=== PATIENT | female | born 1970 | race African-American/Black ===

== ENCOUNTER 2023-07-14 00:17 | Day surgery (SDC) | payer BC, SELFPAY ==
--- NOTE | 2023-07-02 13:49 | PC.NURSE ---
Report to the Outpatient Waiting Room, entrance under the green pavilion located off [facility], at time 1230 on date 07/14/22. Planned Procedure Time: 1430. Time changes happen often and if your time is changed the preop area will call you the afternoon before. - You and your visitor will be asked to self-screen and do not enter if you have any COVID symptoms. - A mask is optional within the hospital at this time. Patients may have clear liquids (water, carbonated beverages, clear teas, apple juice) until 3 hours prior to surgery with a maximum of 20 ounces. 1130 - No food from midnight until time of surgery - Infants may have breast milk until 4 hours before surgery, formula 6 hours prior to surgery. - Children will be allowed to drink immediately following surgery. If applicable, please bring a bottle or sippy cup to assist with drinking. Juice, water, soda, and popsicles are readily available. For infants on formula, please bring formula the day of surgery. Pacifiers are allowed. Take the following medications with a SIP of water the morning of surgery: None DO NOT STOP ANY OF YOUR OTHER PRESCRIPTION MEDICATIONS PRIOR TO SURGERY ?EXCEPT THE FOLLOWING Medications to discontinue per physician Multivitamin Date to take last dose 07/11/22 Please no make-up, nail croatian, hairspray, perfume, deodorant, or body powder the day of surgery. No jewelry (including any body piercings) or valuables the day of surgery, leave them at home. Please take a shower or bath the night before, or the morning of, surgery with an antibacterial soap. Wear comfortable, loose fitting clothing. Children are encouraged to wear pajamas. - Jewelry must be removed prior to entering the operating room. Rings and piercings that are not removed may be cut off. - The hospital will not accept responsibility for valuables. - Please leave all valuables, including medications, at home the day of surgery. If you are going home after surgery, a licensed regional otr company driver must drive you home. - NO public transportation without another adult if you receive anesthesia. - We recommend that an adult stay with you for 24 hours following discharge. - We also recommend that you do not drive, make important decision, drink alcoholic beverages, or take any drugs that were not prescribed by your health care provider for at least 24 hours after your discharge time. For Pediatric surgeries, we recommend two adults accompany the child home. Follow any additional instructions given to you from your surgeon. If you or anyone in your household have experienced Covid symptoms in the past week, please notify your surgeon or the nurse liaison at the phone number below for possible testing. Telephone instructions given to Patient- Andres Adame asked if any additional questions and then verbalized understanding. Patient advised to call surgeon office or pre surgery nurse liaison [phone] if any additional questions.
[2023-07-02 13:55] VITALS: BMI 41.7
--- NOTE | 2023-07-14 08:41 | P.HP_ITS ---
History of Present Illness History of Present Illness Consent: Risks, benefits, and alternatives have been discussed and questions answered. Patient agrees to proceed with procedure. Chief complaint: post menopausal bleeding Narrative: Andres Potts is a 53 year old female with 3 episodes of postmenopausal bleeding. Pelvic ultrasound was unable to measure endometrial stripe. LH and FSH are consistent with possible menopause. Patient has had an IUD in place without bleeding prior to this point. It is recommended to undergo D&C hysteroscopy for further evaluation. Risks of infection, bleeding, perforation, and displacement of the IUD are reviewed. Review of Systems Review of Systems: not repeated day of surgery; patient states no changes in status [facility] Past Medical History Medical History (Updated 07/14/23 @ 08:46 by Patience Dong MD) Arthritis Chronic hypertension (normal spontaneous vaginal delivery) Social History Social History Smoking status: Never smoker Meds Home Medications and Allergies Home Medications Medication Instructions Recorded Confirmed Type Adults Multivitamin 1 tab-cap PO DAILY 07/02/23 07/02/23 History Allergies Allergy/AdvReac Type Severity Reaction Status Date / Time No Known Allergies Allergy Verified 07/02/23 13:41 Exam Const: General: healthy appearing and alert Orientation/consciousness: patient oriented x3 Resp: Effort & Inspection: normal respiratory effort GI: GI Palp: Yes Soft to palpation, No Tenderness to palpation present (GI) and No Palpable mass present : External Female Exam: normal external appearance Speculum Exam - Vagina: normal appearance of the vagina and normal vaginal discharge Speculum Exam - Cervix: normal appearance of the cervix Bimanual exam- vagina & uterus: uterine size normal and consistency normal Bimanual Exam- Adnexa, other: normal adnexae and No adnexal tenderness Neuro: General: patient oriented x3 Assessment and Plan Assessment and plan (1) Post-menopausal bleeding: Code(s): N95.0 - Postmenopausal bleeding Status: Acute Assessment and Plan: plan to proceed with D&C hysteroscopy plan to leave IUD in place unless it becomes dislodged
--- NOTE | 2023-07-14 08:41 | WPDHPUPDATE1 ---
History and Physical Update Update Date/Time: 07/14/23 08:41 History and Physical has been reviewed, including an updated exam of the patient. There are NO changes in the patient's condition. Risks, benefits, and alternatives have been discussed and questions answered. Patient agrees to proceed with procedure.
[2023-07-14 12:50] VITALS: BP 136/81; PULSE 77; RESP 20; TEMP 36.4; O2SAT 99
[2023-07-14] MEDS: ACETAMINOPHEN 500 MG TABLET 1000 MG PO (13:00)
--- NOTE | 2023-07-14 13:04 | WPDANESEPPF ---
Anes - Initial Pre Proc Eval Procedure: Operation Date: 07/14/23 14:30 Proposed Procedures p Hysteroscopy Dilation and Curettage - Patience Dong MD Date/Time: 07/14/23 13:04 Surgeon: Patience Dong MD Pre Op Diagnosis: post menopausal bleeding Patient Data Age: 53 Gender: F Height: 1.65 m Weight: 113.8 kg Allergies Allergy/AdvReac Type Severity Reaction Status Date / Time No Known Allergies Allergy Verified 07/14/23 13:00 Home Medications Medication Instructions Recorded Confirmed Type Adults Multivitamin 1 tab-cap PO DAILY 07/02/23 07/14/23 History Patient hx anesthesia problems: none Family hx anesthesia problems: none Results Review: All pre-operative results and documents have been reviewed as part of the pre-operative evaluation. [facility] Past Medical History Medical History Arthritis Chronic hypertension (normal spontaneous vaginal delivery) Social History Social History Smoking status: Never smoker Anes - Eval Final PreProcedure Day of Procedure 07/14/23 13:04 Patient weight: morbidly obese Heart: regular rate and rhythm Lungs: clear to auscultation Airway: Mallampati scale class II Neurological: alert and oriented Last oral intake: >/= 8 hours ASA classification: III Emergent: no Anesthetic plan: proceed Anesthesia type and monitoring: general GIVS and standard monitoring Results Review: All pre-operative results and documents have been reviewed as part of the pre-operative evaluation. Informed Consent: The patient's anesthetic plan and its attendant risks and benefits were discussed with the patient/family/POA. Questions were solicited and answers provided to the satisfaction of the patient/family/POA.
[2023-07-14] MEDS: LACTATED RINGERS 1,000 ML 30 ML IV CONT (13:05)
[2023-07-14 14:27] VITALS: BP 122/76; PULSE 72; RESP 14; O2SAT 94
--- NOTE | 2023-07-14 14:28 | P.OP_ITS ---
Procedure Note - Detailed Date of Procedure 07/14/23 Pre-op Diagnosis post menopausal bleeding Post-op Diagnosis Same Procedure Performed D&C hysteroscopy Surgeon Patience Dong MD Anesthesia MAC Findings IUD in correct position; normal appearing thin endometrium; uterus sounds to 7cm Description of Procedure The patient is taken to the operating room and placed under anesthesia in the dorsal lithotomy position. She was prepped and draped in the usual sterile fashion. [place] speculum was placed in the vagina and the cervix grasped on the anterior lip with a tenaculum. The uterus is sounded to 7cm. The hysteroscope is placed with the above-stated findings. The OO sharp curette is used to curette the endometrium until a good uterine cry was noted in all areas. The instruments are removed. Sponge, needle, and instrument counts are joaquin ect per the OR staff. Patient is awakened from anesthesia and taken to recovery in stable condition. Estimated Blood Loss 5 Drains No Packing No Pathology Yes ( Endometrial curettings) Complications No immediate complications Condition Stable Disposition PACU
[2023-07-14] MEDS: fentaNYL CITRATE INJ (*CRX) 100 MCG/2 ML VIAL 25 MCG IV PUSH (14:53)
[2023-07-14 14:55] VITALS: BP 131/82; PULSE 66; RESP 14; O2SAT 95
[2023-07-14 15:25] VITALS: BP 139/84; PULSE 66; RESP 14; O2SAT 95
== END 2023-07-14 15:47 | disposition home or self-care (01) ==
PROVIDERS: Visit Provider Obstetrics & Gynecology Gynecology
PROC: 0U5B8ZZ Destruction of Endometrium, Via Natural or Artificial Opening Endoscopic (ICD-10-PCS; CPT 58563; principal; 2023-07-14 14:30)
DX: N95.0 Postmenopausal bleeding (principal); N71.1 Chronic inflammatory disease of uterus; I10 Essential (primary) hypertension; E66.01 Morbid (severe) obesity due to excess calories; Z68.41 Body mass index [BMI] 40.0-44.9, adult; Z97.5 Presence of (intrauterine) contraceptive device
CPT/HCPCS: 58558; 88305; A9270; J2250; J2405; J2704; J3010; J7120

== ENCOUNTER 2024-11-08 00:29 | Day surgery (SDC) | payer BC, SELFPAY ==
[2024-10-28 13:20] VITALS: BMI 45.0
--- NOTE | 2024-10-28 13:29 | PC.NURSE ---
Report to the Outpatient Waiting Room, entrance under the green pavilion located off [facility], at time ____0600___ on date ___11/08/24____. Planned Procedure Time: ___729 .? Time changes happen often and if your time is changed the preop area will call you the afternoon before. - You and your visitor will be asked to self-screen and do not enter if you have any COVID symptoms. Please call surgeon if you need to reschedule. - A mask is optional within the hospital at this time. Patients may have clear liquids (water, carbonated beverages, clear teas, apple juice) until 3 hours prior to surgery with a maximum of 20 ounces. - No food from midnight until time of surgery and no smoking, or chewing tobacco (or any form of nicotine). No chewing gum, candy or mints. Take only the following medications with a SIP of water on the morning of surgery: none DO NOT STOP ANY OF YOUR OTHER PRESCRIPTION MEDICATIONS PRIOR TO SURGERY EXCEPT THE FOLLOWING Hold all vitamins and supplements for 3 days per anesthesiologist. Please no make-up, nail lao, hairspray, perfume, deodorant, or body powder the day of surgery.? No jewelry (including any body piercings) or valuables the day of surgery, leave them at home.? Please take a shower or bath the night before, or the morning of, surgery with an antibacterial soap.? Wear comfortable, loose fitting clothing.? - Jewelry must be removed prior to entering the operating room.? Rings and piercings that are not removed may be cut off. - The hospital will not accept responsibility for valuables.? - Please leave all valuables, including medications, at home the day of surgery. If you are going home after surgery, a licensed driver salesman must drive you home.? - NO public transportation without another adult if you receive anesthesia. - We recommend that an adult stay with you for 24 hours following discharge. - We also recommend that you do not drive, make important decision, drink alcoholic beverages, or take any drugs that were not prescribed by your health care provider for at least 24 hours after your discharge time. Follow any additional instructions given to you from your surgeon. Telephone instructions given to ___Destineeene__and asked if any additional questions and then verbalized understanding. Patient advised to call surgeon office or pre surgery nurse liaison [phone] if any additional questions.
--- OUTSIDE RECORDS SUMMARY | 2024-11-08 00:32 | XMS_ITS | Referral Summary ---
Author Organization [facility] [place] [facility] Address [address] [place] [address] Care Team Providers Care Painter Maintenance Name Role Phone Kd Huizar MD Primary Care Provider Encounters Date Type Department Care Team Description 08/23/2024 9:34 AM TRAINING REPRESENTATIVE - 08/23/2024 11:59 PM TRAINING REPRESENTATIVE Hospital Encounter [facility] [address] [place] [id number] Bilateral chronic knee pain Discharge Disposition: Discharge to home or self care 08/23/2024 9:30 AM TRAINING REPRESENTATIVE Office Visit [facility] [address] [place] [address] [place] [phone] Dante Solomon DO Bilateral chronic knee pain (Primary Dx) from Last 3 Months Allergies No known active allergies Medications naproxen (NAPROSYN) 500 mg tabletIndication s:Left hip pain Take 1 tablet (500 mg total) by mouth 2 (two) times a day with meals for 5 days 10 tablet 03/28/2024 Active cyclobenzaprine (FLEXERIL) 5 mg tabletIndication s:Left hip pain Take 1 tablet (5 mg total) by mouth 3 (three) times a day as needed for muscle spasms for up to 7 days 21 tablet 03/28/2024 Active Active Problems Problem Noted Date Diagnosed Date Elbow joint pain 08/23/2024 Overview (08/23/2024): Elbow joint pain Multiple joint pain 08/23/2024 Overview (08/23/2024): Polyarthralgia Left hip pain 03/28/2024 Assessment & Plan (03/28/2024 12:43 PM CDT): Possible MSK related? DJD? Ordered x-ray L hip given severity per patient Warm compress or heating pad Lidocaine patches Voltaren gel Flexeril as needed, evening use advised Naproxen as prescribed Ordered x-ray L hip , can go tomorrow ER for worsening, fevers, numbness, tingling PCP for persisting symptoms Prediabetes 02/25/2024 Essential hypertension 02/11/2024 Hyperlipidemia 02/11/2024 Osteoarthritis of both knees 02/11/2024 Knee pain, left 04/17/2020 Assessment & Plan (04/23/2021 9:16 AM CDT): Cont meloxicam sma 7 Assessment & Plan (07/05/2020 4:53 PM TRAINING REPRESENTATIVE): PT Mri Assessment & Plan (04/17/2020 10:23 AM CDT): Xray Vertigo 09/28/2019 Assessment & Plan (04/17/2020 10:23 AM CDT): Stable Assessment & Plan (10/18/2019 9:57 AM CDT): resolved Assessment & Plan (09/28/2019 2:56 PM CDT): antivert Annual physical exam 04/19/2019 Assessment & Plan (11/13/2022 8:43 AM CDT): Colonoscopy is up-to-date Mammogram is up-to-date Bone density is normal Labs are reviewed Total cholesterol 208 HDL elevated LDL normal Assessment & Plan (11/07/2021 8:27 AM CDT): Labs reviewed Assessment & Plan (10/16/2020 9:15 AM CDT): Will see Gas Plant Repairer for routine lab Discussed covid vaccine Discussed shingles vaccine Assessment & Plan (04/19/2019 10:53 AM CDT): Lab Scheduled for both a mammogram and colonoscopy Morbid obesity with BMI of 40.0-44.9, adult 04/06 Assessment & Plan (11/13/2022 8:43 AM CDT): Healthy diet Regular exercise Assessment & Plan (11/07/2021 8:27 AM CDT): Healthy diet Regular exercise Weight loss Assessment & Plan (04/23/2021 9:21 AM CDT): Healthy diet and exercise Check a SMA 7, CBC, lipid, TSH and LFT I will refer her to a dietitian. May consider bariatric referral depending on how she does Assessment & Plan (07/05/2020 4:53 PM TRAINING REPRESENTATIVE): Weight loss Healthy diet Assessment & Plan (04/17/2020 10:23 AM CDT): No new orders Assessment & Plan (10/18/2019 9:58 AM CDT): Healthy diet Weight loss Assessment & Plan (04/19/2019 10:53 AM CDT): Healthy diet and lose weigh t Osteoarthritis 11/06/2015 Overview (08/23/2024): Osteoarthritis Acute bronchitis 07/09/2015 Overview (08/23/2024): Acute bronchitis Localized, primary osteoarthritis of hand 2014 Overview (08/23/2024): Localized, primary osteoarthritis of the hand Acquired trigger finger 03/16/2015 Overview (08/23/2024): Acquired trigger finger Meralgia paresthetica 03/16/2015 Overview (08/23/2024): Meralgia paresthetica Arthralgia of upper arm 03/01/2014 Overview (08/23/2024): Arthralgia of the upper arm Morbid obesity 05/12/2012 Overview (08/23/2024): Morbid obesity Plantar fascial fibromatosis 05/12/2012 Overview (08/23/2024): Plantar fascial fibromatosis Immunizations Immunization Administration Dates Next Due Influenza, Unspecified 04/06/2022(Deferr ed: Patient Refused),04/23/2021(Deferred: Patient Refused) Social History Tobacco Use Types Packs/Day Years Used Date Smoking Tobacco: Never Smokeless Tobacco: Never Alcohol Use Standard Drinks/Week Comments Yes 0 (1 standard drink = 0.6 oz pur e alcohol) socially AUDIT-C Answer Date Recorded Q1: How often do you have a drink containing alc ohol? Monthly or less 11/13/2022 Q2: How many drinks containi ng alcohol do you have on a typical day when you are drinking? 1 or 2 11/13/2022 Q3: How often do you have si x or more drinks on one occasion? Never 11/13/2022 PHQ-2 Answer Date Recorded PHQ-2 Total Score (If total score is 3 or more points, staff should administer the PHQ-9) 0 11/13/2022 Personal Safety Answer Date Recorded Have you ever been in or are you currently in a harmful physical or emotional relationship or is someone making you feel afraid or unsafe? Denies 01/29/2024 Comments Unknown Sex and Gender Information Value Date Recorded Sex Assigned at Not on file Legal Sex Female 4:31 AM TRAINING REPRESENTATIVE Gender Identity Female 07/29/2020 1:53 PM TRAINING REPRESENTATIVE Sexual Orientation Straight 04/22/2021 11 :08 PM CDT Last Filed Vital Signs Vital Sign Reading Time Taken Comments Blood Pressure 142/82 03/28/2024 12:02 PM CDT Pulse 104 03/28/2024 12:02 PM CDT Temperature 36.3 C (97.4 F) 03/28/2024 12:02 PM CDT Respiratory Rate 18 03/28/2024 12:02 PM CDT Oxygen Saturation 97% 03/28/2024 12:02 PM CDT Inhaled Oxygen Concentration - - Weight 117.5 kg (259 lb) 03/28/2024 12:02 PM CDT Height 165.1 cm (5' 5 ) 03/28/2024 12:02 PM CDT Body Mass Index 43.1 03/28/2024 12:02 PM CDT Plan of Treatment Not on file Procedures Procedure Name Priority Date/Time Associated Diagnosis Comments XR KNEE BILATERAL 3 VIEWS Schedule Routine, Read Routine (OP Routine) 08/23/2024 9:52 AM TRAINING REPRESENTATIVE Bilateral chronic knee pain IN ARTHROCENTESIS ASPIR&/INJ MAJOR JT/BURSA W/O US Routine 08/23/2024 9:30 AM TRAINING REPRESENTATIVE Bilateral chronic knee pain SCREENING MAMMOGRAM BILATERAL W JOSE Schedule Routine, Read Routine (OP Routine) 09/07/2022 COLONOSCOPY Routine 06/14/2019 from Last 3 Months or Most Recently Relevant to Health Maintenance Results * XR Knee Bilateral 3 Views (08/23/2024 9:52 AM TRAINING REPRESENTATIVE) Anatomical Region Laterality Modality Lower Extremities, Knee Bilateral Computed Radiography 08/25/2024 11:5 1 AM TRAINING REPRESENTATIVE Narrative 08/25/2024 11:53 AM TRAINING REPRESENTATIVE EXAM DESCRIPTION: XR KNEE BILATERAL 3 VIEWS REASON FOR STUDY: pain Bilateral medial side knee pain x 2 plus yrs, R>L, NRI FINDINGS: Three views each knee submitted with comparison 09/13/2021, 07/22/2020. There is severe medial predominant bilateral knee osteoarthritis. No acute fracture. Alignment is normal. There are no effusions. Extensor mechanism enthesophytes are noted. IMPRESSION: Severe medial predominant bilateral knee osteoarthritis. THIS IS AN ELECTRONICALLY VERIFIED FINAL REPORT 08/25/2024 11:53 AM - Electronically signed by Nathanael Nunn M.D. T: Report ID: [id number] Reading Location: [id number] Procedure Note Nathanael Nunn MD - 08/25/2024 EXAM DESCRIPTION: XR KNEE BILATERAL 3 VIEWS REASON FOR STUDY: pain Bilateral medial side knee pain x 2 plus yrs, R>L, NRI FINDINGS: Three views each knee submitted with comparison 09/13/2021, 07/22/2020. There is severe medial predominant bilateral knee osteoarthritis. Noacute fracture. Alignment is normal. There are no effusions. Extensormechanism enthesophytes are noted. IMPRESSION: Severe medial predominant bilateral knee osteoarthritis. THIS IS AN ELECTRONICALLY VERIFIED FINAL REPORT 08/25/2024 11:53 AM - Electronically signed by Nathanael Nunn M.D. T: Report ID: [id number] Reading Location: [place] [address] Dante Solomon DO IMG XR PROCEDURES Final Result * IN ARTHROCENTESIS ASPIR&/INJ MAJOR JT/BURSA W/O US (08/23/2024 9:30 AM TRAINING REPRESENTATIVE) Narrative Dante Solomon DO - 08/23/2024 9:30 AM TRAINING REPRESENTATIVE Dante Solomon DO 08/23/2024 5:25 PM Large Joint (Hip, Knee, Shoulder) Injection: bilateral knee Performed by: Dante Solomon DO Authorized by: Dante Solomon DO Large Joint Injection/Aspiration: Consent Given by: Patient Verbal consent obtained: Yes Supporting Documentation: Indications: Pain Procedure Details: Location: Knee Site: Bilateral knee Prep: patient was prepped using a clean technique Approach: Anterolateral Medications Right Large Joint Injection: 2 mL lidocaine 10 mg/mL (1 %); 40 mg triamcinolone 40 mg/mL Medications Left Large Joint Injection: 2 mL lidocaine 10 mg/mL (1 %); 40 mg triamcinolone 40 mg/mL Patient tolerance: Patient tolerated the procedure well with no immediate complications Dante Solomon DO IN CLINIC/BEDSIDE ORDERABLES F inal Result * Screening Mammogram Bilateral W Jose (09/07/2022) Anatomical Region Laterality Modality Breast Bilateral Mammography 09/07/2022 Historical Provider IMG MAMMO PROCEDURES Irma l Result * Colonoscopy (06/14/2019) Anatomical Region Laterality Modality Other Historical Provider ENDOSCOPY PROCEDURES Irma l Result from Last 3 Months or Most Recently Relevant to Health Maintenance Insurance [facility] Care Teams Painter Maintenance Relationship Specialty Start Date End Date Kd Huizar MD [address] [address] [place] [address] PCP - General Internal Medicine 08/23/24
--- OUTSIDE RECORDS SUMMARY | 2024-11-08 00:33 | XMS_ITS | Clinical Summary ---
Author Organization [facility] Address [address] [place] [address] Care Team Providers Care Consumer Analyst Name Role Phone Kd Huizar MD Primary Care Provider [phone] Allergies No known active allergies Medications naproxen [...] 7 Assessment & Plan (07/05/2020 4:53 PM TARIFF COUNSEL): PT Mri Assessment & Plan (04/17/2020 10:23 [...] Plan (10/16/2020 9:15 AM CDT): Will see [facility] for routine lab Discussed covid vaccine Discussed [...] does Assessment & Plan (07/05/2020 4:53 PM TARIFF COUNSEL): Weight loss Healthy diet Assessment & Plan [...] fibromatosis 05/12/2012 Overview (08/23/2024): Plantar fascial fibromatosis Encounters Date Type Department Care Team Description 08/23/2024 9:34 AM TARIFF COUNSEL - 08/23/2024 11:59 PM TARIFF COUNSEL Hospital Encounter [facility] [address] [place] [id number] Bilateral chronic knee pain Discharge Disposition: Discharge to home or self care 08/23/2024 9:30 AM TARIFF COUNSEL Office Visit [facility] [address] [place] [address] [address] [place] [id number] Dante Solomon DO Bilateral chronic knee pain (Primary Dx) from Last 3 Months Immunizations Immunization Administration Dates Next Due Influenza, Unspecified 04/06/2022(Deferr ed: Patient Refused),04/23/2021(Deferred: Patient Refused) Surgical History Surgery Date Site/Laterality Comments CYST REMOVAL Medical History Medical History Date Comments Hypertension Family History Medical History Relation Name Comments No Known Problems Brother 2 No Known Problems Daughter 1 Asthma Daughter 2 Cancer Father Hypertension Mother No Known Problems Sister 5 Relation Name Status Comments Brother 2 Alive Daughter 1 Alive Daughter 2 Alive Father Mother Alive Sister 5 Alive Social History Tobacco Use Types Packs/Day Years [...] on file Legal Sex Female 4:31 AM TARIFF COUNSEL Gender Identity Female 07/29/2020 1:53 PM TARIFF COUNSEL Sexual Orientation Straight 04/22/2021 11 :08 PM CDT Obstetrics History Last Filed Vital Signs Vital Sign Reading [...] 03/28/2024 12:02 PM CDT Plan of Treatment Health Maintenance Due Date Last Done Comments Cervical Cancer Screening 1968 Hepatitis C Screening 1968 DTaP/Tdap/Td Vaccine (1 - Tdap) 1979 Hepatitis B Screening 1986 Zoster Vaccine (1 of 2) 2018 Depression Screening 11/14/2023 11/13/2022, 11/07/2021, 04/23/2021, Additional history exists Regular Well Visit/Exam 18-64 11/14/2023 11/13/2022, 11/07/2021, 11/07/2021, Additional history exists Covid-19 Vaccine ( season) 2024 03/10/2021, 02/17/2021 Breast Cancer Screening-Mammogram 09/09/2024 09/10/2023, 09/10/2023, 09/07/2022, Additional history exists Influenza Vaccine (Season Ended) 2025 Colon Cancer Screening-Colonoscopy 06/14/2029 06/14/2019 Colon Cancer Screening-CT Colonography Discontinued 06/14/2019 Colon Cancer Screening-DNA Stool Discontinued 06/14/2019 Colon Cancer Screening-FIT Discontinued 06/14/2019 Colon Cancer Screening-Sigmoidoscopy Discontinued 06/14/2019 Pneumococcal vaccine <65 Aged Out No longer eligible based on patient's age to complete this topic Procedures Procedure Name Priority Date/Time Associated Diagnosis Comments XR KNEE BILATERAL 3 VIEWS Schedule Routine, Read Routine (OP Routine) 08/23/2024 9:52 AM TARIFF COUNSEL Bilateral chronic knee pain [place] ARTHROCENTESIS ASPIR&/INJ MAJOR JT/BURSA W/O US Routine 08/23/2024 9:30 AM TARIFF COUNSEL Bilateral chronic knee pain SCREENING MAMMOGRAM BILATERAL W JOSE Schedule Routine, Read Routine (OP Routine) 09/07/2022 COLONOSCOPY Routine 06/14/2019 from Last 3 Months or Most Recently Relevant to Health Maintenance Results * XR Knee Bilateral 3 Views (08/23/2024 9:52 AM TARIFF COUNSEL) Anatomical Region Laterality Modality Lower Extremities, Knee Bilateral Computed Radiography 08/25/2024 11:5 1 AM TARIFF COUNSEL Narrative 08/25/2024 11:53 AM TARIFF COUNSEL EXAM DESCRIPTION: XR KNEE BILATERAL 3 VIEWS [...] by Nathanael Nunn M.D. T: Report ID: [id number] Reading Location: [id number] Procedure Note Nathanael Nunn MD - 08/25/2024 [...] 08/25/2024 11:53 AM - Electronically signed by Nathaanel Nunn M.D. T: Report ID: [id number] Reading Location: [place] [id number] Result [facility] Dante Solomon DO IMG XR PROCEDURES Final Result * [place] ARTHROCENTESIS ASPIR&/INJ MAJOR JT/BURSA W/O US (08/23/2024 9:30 AM TARIFF COUNSEL) Narrative Dante Solomon DO - 08/23/2024 9:30 AM TARIFF COUNSEL Dante Solomon DO 08/23/2024 5:25 PM Large [...] the procedure well with no immediate complications Result [facility] Dante Solomon DO IN CLINIC/BEDSIDE ORDERABLES F inal Result * Screening Mammogram Bilateral W Jose (09/07/2022) Anatomical Region Laterality Modality Breast Bilateral Mammography 09/07/2022 Result [facility] Historical Provider IMG MAMMO PROCEDURES Irma l Result * Colonoscopy (06/14/2019) Anatomical Region Laterality Modality Other Result [facility] Historical Provider ENDOSCOPY PROCEDURES Iram l Result from Last 3 Months or Most Recently Relevant to Health Maintenance Insurance [facility] FEDERAL Care Teams Consumer Analyst Relationship Specialty Start Date End Date Kd Huizar MD [address] [facility] [address] [place] [address] PCP - General Internal Medicine 08/23/24
--- OUTSIDE RECORDS SUMMARY | 2024-11-08 00:33 | XMS_ITS | Data Portability ---
Author Organization [place] - [facility], [facility] Address [address] [place] [address] Assessment No assessment recorded. Plan of Treatment Reminders Order Date Submit Date Provider Last Modified By Organization Details Last Modified Time Details Appointments Follow Up 15 2024 03:30P M Kd Huizar MD Not available Not available Not available Lab glucose, fingersti ck, blood 2023 024 [email or web address] 7 [facility], [address], [place], [address], 02/25/2024 16:12:26 uric acid, serum or plasma 2023 024 SOFIA Not available 02/12/2024 17:21:29 HbA1c (hemoglob in A1c), blood 2023 024 SOFIA Not available 02/12/2024 17:21:28 CMP, serum or plasma 2023 024 SOFIA Not available 02/12/2024 17:21:30 CBC w/ auto diff 2023 024 SOFIA Not available 02/12/2024 17:21:29 urinalysi s complete, reflex culture 2023 024 SOFIA Not available 08/22/2024 05:00:56 microalbu min/creat inine, mass ratio, urine 2023 024 SOFIA Not available 08/22/2024 05:00:56 TSH, serum, reflex free T4 2023 024 SOFIA Not available 08/22/2024 05:00:56 lipid panel, serum 2023 024 SOFIA Not available 02/12/2024 17:21:29 Referral None recorded. Procedures None recorded. Surgeries None recorded. Imaging MAMMO, screening , digital, bilateral 2024 025 [facility], [address], [place], [address], 09/10/2024 11:01:29 Medication Orders Ozempic 0.25 mg or 0.5 mg (2 mg/1.5 mL) subcutane ous pen injector 2024 025 [facility], [address] [facility] [address], [place], [address], 08/19/2024 17:08:21 Wegovy 0.25 mg/0.5 mL subcutane ous pen injector 2024 025 [id number], [address] [place] [address], [id number], 08/19/2024 17:08:25 Patient TargetsNo targets recorded. Patient Instructions Encounter Date Encounter Id Patient Instructions Last Modified By Organization Details Last Modified Time 02/11/2024 [id number] When You Want to Lose Weight: Care Instructions [email or web address] Not available 02/11/2024 15:03:54 high blood pressure: care instructions [email or web address] Not available 02/11/2024 15:03:54 learning about high blood pressure [email or web address] Not available 02/11/2024 15:03:54 high cholesterol : care instructions [email or web address] Not available 02/11/2024 15:03:54 02/25/2024 [id number] When You Want to Lose Weight: Care Instructions Not available 02/25/2024 16:12:26 learning about high blood pressure [email or web address] Not available 02/25/2024 16:12:26 high cholesterol : care instructions [email or web address] Not available 02/25/2024 16:12:26 08/19/2024 [id number] When You Want to Lose Weight: Care Instructions [email or web address] Not available 08/19/2024 17:08:19 learning about high blood pressure Not available 08/19/2024 17:08:19 high cholesterol : care instructions [email or web address] Not available 08/19/2024 17:08:19 I spent a total of _31 minutes (excluding separately reportable procedure time ) in care of this patient. [email or web address] Not available 08/19/2024 17:07:02 Reason for Referral None Reported. Results Created Date Observation Date Name Description Value Unit Range Abnormal Flag Note LastModifiedBy Organization Detail LastModifiedTime 02/11/20 24 02/11/2024 HEMOG LOBIN A1C hemoglobin A1C 5.7 % 4.8-5. 6 high JESSA L RANGE BASED ON WANDA COL 2 (DCCT /NGSP ): Non-D iabet ic: < 5.7% Pre-D iabet es: 5.7 - 6.4% Diabe maritza: => 6.5% GLYCE RICO CONTR OL: < 7.0% Not Available [facility] [address], [place], [address], 02/12/2024 15:26:22 02/11/20 24 02/11/2024 HEMOG LOBIN A1C estimated average glucose 118 Not Available [facility] [address], [place], [address], 02/12/2024 15:26:22 02/11/20 24 02/11/2024 CBC WITH AUTO- DIFFE RENTI AL WBC 6.4 10*3/ uL 3.4-10 .8 Not Available [facility] [address], [place], [address], 02/12/2024 15:26:22 02/11/20 24 02/11/2024 CBC WITH AUTO- DIFFE RENTI AL RBC 4.40 10*6/ uL 3.80-5 .30 Not Available [facility] [address], [place], [address], 02/12/2024 15:26:22 02/11/20 24 02/11/2024 CBC WITH AUTO- DIFFE RENTI AL HGB 12.7 g/dL 11.1-1 5.9 Not Available [facility] [address], [place], [address], 02/12/2024 15:26:22 02/11/20 24 02/11/2024 CBC WITH AUTO- DIFFE RENTI AL HCT 39.6 % 34.0-4 6.6 Not Available [facility] [address], [place], [address], 02/12/2024 15:26:22 02/11/20 24 02/11/2024 CBC WITH AUTO- DIFFE RENTI AL MCV 90 fL 79-97 Not Available [facility] [address], [place], [address], 02/12/2024 15:26:22 02/11/20 24 02/11/2024 CBC WITH AUTO- DIFFE RENTI AL MCH 28.9 pg 26.6-3 3.0 Not Available [facility] [address], [place], [address], 02/12/2024 15:26:22 02/11/20 24 02/11/2024 CBC WITH AUTO- DIFFE RENTI AL MCHC 32.1 g/dL 31.5-3 5.7 Not Available [facility] [address], [place], [address], 02/12/2024 15:26:22 02/11/20 24 02/11/2024 CBC WITH AUTO- DIFFE RENTI AL RDW 13.6 % 11.5-1 4.5 Not Available [facility] [address], [place], [address], 02/12/2024 15:26:22 02/11/20 24 02/11/2024 CBC WITH AUTO- DIFFE RENTI AL platelets 244 10*3/ uL 150-40 0 Not Available [facility] [address] [facility] [address], [place], [address], 02/12/2024 15:26:22 02/11/20 24 02/11/2024 CBC WITH AUTO- DIFFE RENTI AL MPV 12 fL 9-13 Not Available [facility] [address] [facility] [address], [place], [address], 02/12/2024 15:26:22 02/11/20 24 02/11/2024 CBC WITH AUTO- DIFFE RENTI AL neutrophils 45.3 % 40.0-7 4.0 Not Available [facility] [address] [facility] [address], [place], [address], 02/12/2024 15:26:22 02/11/20 24 02/11/2024 CBC WITH AUTO- DIFFE RENTI AL absolute neutrophils 2.92 10*3/ uL 1.40-7 .00 Not Available [facility] [address] [facility] [address], [place], [address], 02/12/2024 15:26:22 02/11/20 24 02/11/2024 CBC WITH AUTO- DIFFE RENTI AL lymphocytes 47.0 % 14.0-4 6.0 high Not Available [facility] [address] [facility] [address], [place], [address], 02/12/2024 15:26:22 02/11/20 24 02/11/2024 CBC WITH AUTO- DIFFE RENTI AL absolute lymphocytes 3.03 10*3/ uL 0.70-3 .10 Not Available [facility] [address] [facility] [address], [place], [address], 02/12/2024 15:26:22 02/11/20 24 02/11/2024 CBC WITH AUTO- DIFFE RENTI AL monocytes 6.1 % 4.0-12 .0 Not Available [facility] [address], [place], [address], 02/12/2024 15:26:22 02/11/20 24 02/11/2024 CBC WITH AUTO- DIFFE RENTI AL absolute monocytes 0.39 10*3/ uL 0.10-0 .90 Not Available [facility] [address] [facility] [address], [place], [address], 02/12/2024 15:26:22 02/11/20 24 02/11/2024 CBC WITH AUTO- DIFFE RENTI AL eosinophils 0.9 % 0.0-5. 0 Not Available [facility] [address] [facility] [address], [place], [address], 02/12/2024 15:26:22 02/11/20 24 02/11/2024 CBC WITH AUTO- DIFFE RENTI AL absolute eosinophils 0.06 10*3/ uL 0.00-0 .40 Not Available [facility] [address] [facility] [address], [place], [address], 02/12/2024 15:26:22 02/11/20 24 02/11/2024 CBC WITH AUTO- DIFFE RENTI AL basophils 0.5 % 0.0-3. 0 Not Available [facility] [address] [facility] [address], [place], [address], 02/12/2024 15:26:22 02/11/20 24 02/11/2024 CBC WITH AUTO- DIFFE RENTI AL absolute basophils 0.03 10*3/ uL 0.00-0 .20 Not Available [facility] [address] [facility] [address], [place], [address], 02/12/2024 15:26:22 02/11/20 24 02/11/2024 CBC WITH AUTO- DIFFE RENTI AL imm. gran. 0.2 % 0.0-2. 0 Not Available [facility] [address] [facility] [address], [place], [address], 02/12/2024 15:26:22 02/11/20 24 02/11/2024 CBC WITH AUTO- DIFFE RENTI AL abs. imm. gran. 0.01 10*3/ uL 0.00-0 .10 Not Available [facility] [address] [facility] [address], [place], [address], 02/12/2024 15:26:22 02/11/20 24 02/11/2024 COMPR EHENS ANDRÉS METAB OLIC PANEL sodium 141 mmol/ L 134-14 4 Not Available [facility] [address] [facility] [address], [place], [address], 02/12/2024 15:26:22 02/11/20 24 02/11/2024 COMPR EHENS ANDRÉS METAB OLIC PANEL potassium 4.3 mmol/ L 3.5-5. 2 Not Available [facility] [address] [facility] [address], [place], [address], 02/12/2024 15:26:22 02/11/20 24 02/11/2024 COMPR EHENS ANDRÉS METAB OLIC PANEL chloride 101 mmol/ L 97-108 Not Available [facility] [address] [facility] [address], [place], [address], 02/12/2024 15:26:22 02/11/20 24 02/11/2024 COMPR EHENS ANDRÉS METAB OLIC PANEL carbon dioxide (co2) 29.0 mmol/ L 18.0-2 9.0 Not Available [facility] [address] [facility] [address], [place], [address], 02/12/2024 15:26:22 02/11/20 24 02/11/2024 COMPR EHENS ANDRÉS METAB OLIC PANEL glucose 88 mg/dL 65-99 Jessa l Fasti ng: < 100 mg/dL Impai red Fasti n - 125 mg/dL Diagn ostic of Diabe maritza: => 126 mg/dL Ameri can Diabe maritza Ass[facility] iatio n, 2007 Not Available [facility] [address] [facility] [address], [place], [address], 02/12/2024 15:26:22 02/11/20 24 02/11/2024 COMPR EHENS ANDRÉS METAB OLIC PANEL urea nitrogen (BUN) 7 mg/dL 8-23 low Not Available [facility] [address] [facility] [address], [place], [address], 02/12/2024 15:26:22 02/11/20 24 02/11/2024 COMPR EHENS ANDRÉS METAB OLIC PANEL creatinine 0.85 mg/dL 0.57-1 .00 Not Available [facility] [address] [facility] [address], [place], [address], 02/12/2024 15:26:22 02/11/20 24 02/11/2024 COMPR EHENS ANDRÉS METAB OLIC PANEL eGFR 77 mL/mi nute/ 1.73_ m2 >59 MDRD Study Equat ion: The calcu lated GFR is NOT appli cable for pedia tric (< 18 years old) and > 70 year old patie nts and patie nts that are NOT of stead y state . Not Available [facility] [address] [facility] [address], [place], [address], 02/12/2024 15:26:22 02/11/20 24 02/11/2024 COMPR EHENS ANDRÉS METAB OLIC PANEL calcium 9.7 mg/dL 8.7-10 .3 Not Available [facility] [address] [facility] [address], [place], [address], 02/12/2024 15:26:22 02/11/20 24 02/11/2024 COMPR EHENS ANDRÉS METAB OLIC PANEL protein, total 7.7 gm/dL 6.4-8. 3 Not Available [facility] [address] [facility] [address], [place], [address], 02/12/2024 15:26:22 02/11/20 24 02/11/2024 COMPR EHENS ANDRÉS METAB OLIC PANEL albumin 4.3 gm/dL 3.5-5. 2 Not Available [facility] [address] [facility] [address], [place], [address], 02/12/2024 15:26:22 02/11/20 24 02/11/2024 COMPR EHENS ANDRÉS METAB OLIC PANEL bilirubin, total 0.70 mg/dL 0.00-1 .20 Not Available [facility] [address] [facility] [address], [place], [address], 02/12/2024 15:26:22 02/11/20 24 02/11/2024 COMPR EHENS ANDRÉS METAB OLIC PANEL alkaline phosphatase (ALP) 104 U/L 39-[address] [facility] [address] [facility] [address], [place], [address], 02/12/2024 15:26:22 02/11/20 24 02/11/2024 COMPR EHENS ANDRÉS METAB OLIC PANEL aspartate aminotransfe rase (AST) 16 U/L 0-32 Not Available [facility] [address] [facility] [address], [place], [address], 02/12/2024 15:26:22 02/11/20 24 02/11/2024 COMPR EHENS ANDRSÉ METAB OLIC PANEL alanine aminotransfe rase (ALT) 17 U/L 0-33 Not Available [address], [place], [address], 02/12/2024 15:26:22 02/11/20 24 02/11/2024 COMPR EHENS ANDRÉS METAB OLIC PANEL A/G ratio (calculated) 1.3 ratio 1.0-2. 7 Not Available [facility] [address] [facility] [address], [place], [address], 02/12/2024 15:26:22 02/11/20 24 02/11/2024 COMPR EHENS ANDRÉS METAB OLIC PANEL globulin (calculated) 3.4 gm/dL 1.5-3. 8 Not Available [facility] [address] [facility] [address], [place], [address], 02/12/2024 15:26:22 02/11/20 24 02/11/2024 COMPR EHENS ANDRÉS METAB OLIC PANEL BUN/creatini ne ratio (calculated) 8.2 ratio 8.0-20 .0 Not Available [facility] [address] [facility] [address], [place], [address], 02/12/2024 15:26:22 02/11/20 24 02/11/2024 COMPR EHENS ANDRÉS METAB OLIC PANEL serum hemolysis index NORMAL index normal Not Available [facility] [address] [facility] [address], [place], [address], 02/12/2024 15:26:22 02/11/20 24 02/11/2024 LIPID PANEL W/ CALC. LDL cholesterol, total 230 mg/dL 100-19 9 high Not Available [facility] [address] [facility] [address], [place], [address], 02/12/2024 15:26:23 02/11/20 24 02/11/2024 LIPID PANEL W/ CALC. LDL HDL cholesterol 108 mg/dL =>40 Not Available [facility] [address] [facility] [address], [place], [address], 02/12/2024 15:26:23 02/11/20 24 02/11/2024 LIPID PANEL W/ CALC. LDL LDL cholesterol (calculated) 106 mg/dL 0-99 high Not Available [facility] [address] [facility] [address], [place], [address], 02/12/2024 15:26:23 02/11/20 24 02/11/2024 LIPID PANEL W/ CALC. LDL triglyceride s 79 mg/dL 50-149 Not Available [facility] [address] [facility] [address], [place], [address], 02/12/2024 15:26:23 02/11/20 24 02/11/2024 LIPID PANEL W/ CALC. LDL chol/HDL ratio (calculated) 2.13 ratio 0.00-5 .00 Not Available [facility] [address] [facility] [address], [place], [address], 02/12/2024 15:26:23 02/11/20 24 02/11/2024 LIPID PANEL W/ CALC. LDL VLDL cholesterol (calculated) 16 mg/dL 5-40 Not Available [facility] [address] [facility] [address], [place], [address], 02/12/2024 15:26:23 02/11/20 24 02/11/2024 TSH, HS REFLE X TO FT4 TSH hs reflex to FT4 1.00 uIU/m L 0.27-4 .20 Not Available [facility] [address] [facility] [address], [place], [address], 02/12/2024 15:26:23 02/11/20 24 02/11/2024 URIC ACID uric acid 5.6 mg/dL 2.5-7. 1 Not Available [facility] [address] [facility] [address], [place], [address], 02/12/2024 15:26:24 02/11/20 24 02/11/2024 MICRO ALBUM IN:CR EATIN INE RATIO , RANDO M URINE microalbumin , urine 0.82 mcg/m L not applic able Not Available [facility] [address] [facility] [address], [place], [address], 02/12/2024 15:26:24 02/11/20 24 02/11/2024 MICRO ALBUM IN:CR EATIN INE RATIO , RANDO M URINE creatinine, urine 123.1 mg/dL not applic able Not Available [facility] [address] [facility] [address], [place], [address], 02/12/2024 15:26:24 02/11/20 24 02/11/2024 MICRO ALBUM IN:CR EATIN INE RATIO , RANDO M URINE microalbumin :creatinine ratio, random urine (calculated) 6.7 mg/gm _crea t. Jessa l: 0-29 mg/gm Moder ately incre ased: 30-30 0 mg/gm Sever ly incre ased: >300 mg/gm Not Available [facility] [address] [facility] [address], [place], [address], 02/12/2024 15:26:24 02/11/20 24 02/11/2024 URINA LYSIS REFLE X TO URINE CULTU RE color LIGHT YELLOW yellow Not Available [facility] [address] [facility] [address], [place], [address], 02/12/2024 15:26:24 02/11/20 24 02/11/2024 URINA LYSIS REFLE X TO URINE CULTU RE appearance CLEAR clear Not Available [facility] [address] [facility] [address], [place], [address], 02/12/2024 15:26:24 02/11/20 24 02/11/2024 URINA LYSIS REFLE X TO URINE CULTU RE glucose NEGATI VE mg/dL negati ve Not Available [facility] [address] [facility] [address], [place], [address], 02/12/2024 15:26:24 02/11/20 24 02/11/2024 URINA LYSIS REFLE X TO URINE CULTU RE bilirubin NEGATI VE negati ve Not Available [facility] [address] [facility] [address], [place], [address], 02/12/2024 15:26:24 02/11/20 24 02/11/2024 URINA LYSIS REFLE X TO URINE CULTU RE blood NEGATI VE negati ve Not Available [facility] [address] [facility] [address], [place], [address], 02/12/2024 15:26:24 02/11/20 24 02/11/2024 URINA LYSIS REFLE X TO URINE CULTU RE ketone NEGATI VE mg/dL negati ve Not Available [facility] [address] [facility] [address], [place], [address], 02/12/2024 15:26:24 02/11/20 24 02/11/2024 URINA LYSIS REFLE X TO URINE CULTU RE specific gravity 1.025 1.005- 1.030 Not Available [facility] [address] [facility] [address], [place], [address], 02/12/2024 15:26:24 02/11/20 24 02/11/2024 URINA LYSIS REFLE X TO URINE CULTU RE pH 6.0 4.5 - 8.0 Not Available [facility] [address] [facility] [address], [place], [address], 02/12/2024 15:26:24 02/11/20 24 02/11/2024 URINA LYSIS REFLE X TO URINE CULTU RE protein NEGATI VE mg/dL negati ve Not Available [facility] [address] [facility] [address], [place], [address], 02/12/2024 15:26:24 02/11/20 24 02/11/2024 URINA LYSIS REFLE X TO URINE CULTU RE urobilinogen 0.20 eu/dL 0.00-1 .00 Not Available [facility] [address] [facility] [address], [place], [address], 02/12/2024 15:26:24 02/11/20 24 02/11/2024 URINA LYSIS REFLE X TO URINE CULTU RE nitrite NEGATI VE negati ve Not Available [facility] [address] [facility] [address], [place], [address], 02/12/2024 15:26:24 02/11/20 24 02/11/2024 URINA LYSIS REFLE X TO URINE CULTU RE leukocyte esterase NEGATI VE negati ve Not Available [facility] [address] [facility] [address], [place], [address], 02/12/2024 15:26:24 02/11/20 24 02/11/2024 URINA LYSIS REFLE X TO URINE CULTU RE color LIGHT YELLOW yellow Not Available [facility] [address] [facility] [address], [place], [address], 02/12/2024 15:26:24 02/11/20 24 02/11/2024 URINA LYSIS REFLE X TO URINE CULTU RE appearance CLEAR clear Not Available [facility] [address] [facility] [address], [place], [address], 02/12/2024 15:26:24 02/11/20 24 02/11/2024 URINA LYSIS REFLE X TO URINE CULTU RE glucose NEGATI VE mg/dL negati ve Not Available [facility] [address] [facility] [address], [place], [address], 02/12/2024 15:26:24 02/11/20 24 02/11/2024 URINA LYSIS REFLE X TO URINE CULTU RE bilirubin NEGATI VE negati ve Not Available [facility] [address] [facility] [address], [place], [address], 02/12/2024 15:26:24 02/11/20 24 02/11/2024 URINA LYSIS REFLE X TO URINE CULTU RE blood NEGATI VE negati ve Not Available [facility] [address] [facility] [address], [place], [address], 02/12/2024 15:26:24 02/11/20 24 02/11/2024 URINA LYSIS REFLE X TO URINE CULTU RE ketone NEGATI VE mg/dL negati ve Not Available [facility] [address] [facility] [address], [place], [address], 02/12/2024 15:26:24 02/11/20 24 02/11/2024 URINA LYSIS REFLE X TO URINE CULTU RE specific gravity 1.025 1.005- 1.030 Not Available [facility] [address] [facility] [address], [place], [address], 02/12/2024 15:26:24 02/11/20 24 02/11/2024 URINA LYSIS REFLE X TO URINE CULTU RE pH 6.0 4.5 - 8.0 Not Available [facility] [address] [facility] [address], [place], [address], 02/12/2024 15:26:24 02/11/20 24 02/11/2024 URINA LYSIS REFLE X TO URINE CULTU RE protein NEGATI VE mg/dL negati ve Not Available [facility] [address] [facility] [address], [place], [address], 02/12/2024 15:26:24 02/11/20 24 02/11/2024 URINA LYSIS REFLE X TO URINE CULTU RE urobilinogen 0.20 eu/dL 0.00-1 .00 Not Available [facility] [address] [facility] [address], [place], [address], 02/12/2024 15:26:24 02/11/20 24 02/11/2024 URINA LYSIS REFLE X TO URINE CULTU RE nitrite NEGATI VE negati ve Not Available [facility] [address] [facility] [address], [place], [address], 02/12/2024 15:26:24 02/11/20 24 02/11/2024 URINA LYSIS REFLE X TO URINE CULTU RE leukocyte esterase NEGATI VE negati ve Not Available [facility] [address], [place], [address], 02/12/2024 15:26:24 02/25/20 24 02/25/2024 gluco se, ronaldo rsronald k, blood Blood Glucose: mg/dl 82 Not Available [facility] [address], [place], [address], 02/25/2024 15:53:43 09/11/19 25 09/10/2024 MAMMO , scree lillian, digit al, bilat eral No observ ation record ed. [facility] [address] [facility], [place], [address], 09/24/2024 04:03:51 Result Notes None recorded. Problems Name Problem SNOMED Code Status Onset Date Resolution Date Notes Provider Name and Address Organization Details Recorded Time Acute bronchiti s 80896218 Active 2015 Acute bronchiti s Not Available [facility] 3 04:02:20 Plantar fascial fibromato sis 01666701 Active 2011 Plantar fascial fibromato sis Not Available [facility] 3 04:02:20 Acquired trigger finger 9260483 Active 2014 Acquired trigger finger Not Available [facility] 3 04:02:20 Localized , primary osteoarth ritis of the hand 335972017 Active 2014 Localized , primary osteoarth ritis of the hand Not Available [facility] 3 04:02:20 Arthralgi a of the upper arm 469529130 Active 2013 Arthralgi a of the upper arm Not Available [facility] 04:02:20 Meralgia paresthet ica 21111908 Active 2014 Meralgia paresthet ica Not Available [facility] 3 04:02:20 Osteoarth ritis 751059195 Active 2015 Osteoarth ritis Not Available [facility] 3 04:02:21 Morbid obesity 998248338 Active 2011 Morbid obesity Not Available [facility] 3 04:02:21 Pain of multiple joints 47677512 Active Polyarthr algia Not Available [facility] 3 04:02:21 Exposure to lead Active 2015 Exposure to lead Not Available [facility] 3 04:02:21 Pain of joint of elbow 885121430 Active Elbow joint pain Not Available [facility] 3 04:02:21 Mammograp hy abnormal 393224773 Active Mammograp hy abnormal Not Available [facility] 3 04:02:21 Bilateral osteoarth ritis of knees 12031822717 9107 Active 2023 Kd Huizar MD [address] [facility] [facility] [address], [place], [address] , [facility] 4 14:43:13 Essential hypertens ion 04500556 Active 2023 Kd Huizar MD [address] [facility] [address], [place], [address] , [facility] 4 14:51:07 Hyperlipi demia 13303076 Active 2023 Kd Huizar MD [address] [facility] [address], [place], [address] , [facility] 4 14:54:08 Prediabet es 214214716 Active 2023 Kd Huizar MD [address] [facility] [address], [place], [address] , [facility] 4 15:37:03 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 Procedures Surgical History None recorded. Imaging Results Imaging Date Name Status LastModified by [facility] Details LastModified Time 09/10/2024 MAMMO, screening, digital, bilateral completed [facility] [address], [place], [address], 09/24/2024 04:03:51 Procedure Notes None recorded. Medical Equipment None Reported. Allergies No known drug allergies Medications Name Sig Start Date Stop Date Status Note LastModified by Organization Details LastModified Time doxycycline hyclate 100 mg capsule TAKE 1 CAPSULE BY MOUTH TWICE DAILY FOR 10 DAYS 08/19 completed Not Available Not Available Not Available sulfamethox azole 800 mg-trimetho prim 160 mg tablet TAKE ONE TABLET BY MOUTH TWICE DAILY FOR 7 DAYS 02/10 completed Not Available Not Available Not Available triamterene 37.5 mg-hydrochl orothiazide 25 mg tablet Oral 02/10 completed Not Available Not Available Not Available naproxen 500 mg tablet active Not Available Not Available Not Available cyclobenzap rine 5 mg tablet active Not Available Not Available Not Available Ozempic 0.25 mg or 0.5 mg (2 mg/1.5 mL) subcutaneou s pen injector Inject 0.25 mg every week by subcutane ous route for 30 days. 2024 active Not Available Not Available Not Avai lable Wegovy 0.25 mg/0.5 mL subcutaneou s pen injector INJECT 0.25MG UNDER THE SKIN EVERY WEEK active Not Available Not Available No t Available Ozempic 0.25 mg or 0.5 mg (2 mg/3 mL) subcutaneou s pen injector active Not Available Not Available Not Available Vitals Date Recorded Body temperature Body weight Body mass index (BMI) Body height Heart rate Respiratory rate Oxygen saturation Oxygen saturation in Arterial blood by Pulse oximetry Systolic blood pressure Diastolic blood pressure Provider Name and Address Organization Details Last Updated DateTime 4 98.3 [degF] 358445. 39 g 43.9 kg/m2 165.1 cm 95 /min 18 /min 97 % 97 % 130 mm[Hg] 80 mm[Hg] Ilranda Cabral [facility] 4 14:30:00 Date Recorded Body height Body temperature Body mass index (BMI) Body weight Heart rate Respiratory rate Oxygen saturation Oxygen saturation in Arterial blood by Pulse oximetry Systolic blood pressure Diastolic blood pressure Provider Name and Address Organization Details Last Updated DateTime 4 165.1 cm 98.2 [degF] 43.6 kg/m2 069297. 2 g 86 /min 18 /min 97 % 97 % 138 mm[Hg] 72 mm[Hg] [facility] 4 15:49:24 Date Recorded Body height Body temperature Body mass index (BMI) Body weight Heart rate Respiratory rate Oxygen saturation Oxygen saturation in Arterial blood by Pulse oximetry Systolic blood pressure Diastolic blood pressure Provider Name and Address Organization Details Last Updated DateTime 5 165.1 cm 98.4 [degF] 45.9 kg/m2 221917. 49 g 94 /min 18 /min 97 % 97 % 122 mm[Hg] 74 mm[Hg] [facility] 5 16:24:33 Social History None recorded. Functional Status None recorded. Mental Status None recorded. Family History Nothing Reported Notes:MOTHER- HEART DISEASE, HIGH BLOOD PRESSURE, STROKE, GLAUCOMA, FATHERS- GLAUCOMA, HIGH BLOOD PRESSURE, DIABETES SISTER-DIABETES, ARTHRITIS Medical History No medical history recorded. Gynecological HistoryNo gynecological history recorded. Obstetrics History GPAL:G 0 P 0 0 0 0 Immunizations Vaccine Type Date Status Note Provider Nam e and Address Organization Details Recorded Time COVID-19, mRNA, LNP-S, PF, 30 mcg/0.3 mL dose 02/17/2021 [facility] 14:30:25 COVID-19, mRNA, LNP-S, PF, 30 mcg/0.3 mL dose 03/10/2021 completed Irlandaroberto carlos [facility] [place] [facility] 02/11/2024 14:30:25 Past Encounters Encounter ID Performer Location Encounter Start Date Encounter Closed Date Diagnosis/Indication Diagnosis SNOMED-CT Code Diagnosis ICD10 Code Diagnosis Note [id number] Kd Huizar MD [facility] [address] [place] [address] 02/11/2024 13:59:35 02/11/2024 15:16:01 Bilateral osteoarthritis of knees 6766408653 84387 M17.0 sees orthopedic sxray knee with moderate to severe degenerati ve changesrec eived injections on and off Preventive procedure 169 432825 Z29.9 dexa scan 09/2022: normalmamm ogram 09/2023: normalcolo noscopy 2018 dr. Ayala: normal. repaet in 10 yearspap smear: sees dr. Chang id:flu: every yeartdap: recommende dshingles: recommende dpneumonia vaccine: Essential hypertension 04590128 I10 hx of hypertensi on in the pastnot on any medication s History of rectal abscess 7255274318 6729630 Z87.19 recently needed darinage, treated wi an[employer]WineSimpleics 01/2024will go see general surgery next weekhx of rectal abscess 2012 Morbid obesity 504597590 E66.01 bmi 43.9diet and physical activity Hyperlipidemia 17845897 E78.5 mildly elevated cholesrol level.last 09/26: will recheck level [id number] Kd Huizar MD [place] [address] [place] [address] 02/25/2024 15:27:55 02/25/2024 16:13:18 Essential hypertension 99198966 I10 hx of hypertensi on in the pastnot on any medication s Bilateral osteoarthritis of knees 7023352277 88266 M17.0 sees orthopedic sxray knee with moderate to severe degenerati ve changesrec eived injections on and off History of rectal abscess 0423442048 4951535 Z87.19 recently needed darinage, treated wi an[employer] 01/2024gene ral surgery seen and healedhx of rectal abscess 2011 Morbid obesity 495160991 E66.01 bmi 43.9diet and physical activitydi scussed medication s with the patientjosué t: reviewed with the patient: phentemrin e topamax comb vs wegovyphys ical activity limited due to osteoarthr itis Hyperlipidemia 11429626 E78.5 mildly elevated cholesrol level.last 09/26: recheck with mildly elevated leveldiet control advised Preventive procedure 169 271168 Z29.9 dexa scan 09/2022: normalmamm ogram 09/2023: normalcolo noscopy 2019 dr. Ayala: normal. repeat in 10 yearspap smear: sees dr. Chang id: 2 shotsflu: every yeartdap: recommende dshingles: recommende dpneumonia vaccine: not due yet Prediabetes 968317826 R7 3.03 a1c 5,7 [id number] Kd Huizar MD [facility] [address] [place] [address] 08/19/2024 15:51:40 08/19/2024 17:11:23 Screening for malignant neoplasm of breast 072585350 Z12.39 Will order mammograam Prediabetes 953522963 R7 3.03 a1c 5,7Discuss ed optionsoze [facility] with weight loss advised Essential hypertension 76510124 I10 hx of hypertensi on in the pastnot on any medication s Bilateral osteoarthritis of knees 5861439148 67741 M17.0 sees orthopedic sxray knee with moderate to severe degenerati ve changesrec eived injections on and off History of rectal abscess 6006313348 4093387 Z87.19 recently needed drainage, treated wiht antibiotic s 01/2024gene ral surgery seen and healedhx of rectal abscess 2012 Morbid obesity 802397565 E66.01 bmi 43.9diet and physical activitydi scussed medication s with the patientdie t: reviewed with the patient: phentemrin e topamax comb vs wegovyphys ical activity limited due to osteoarthr itis Hyperlipidemia 63074520 E78.5 mildly elevated cholestero l level.last 09/26: recheck with mildly elevated leveldiet control advised Preventive procedure 169 755686 Z29.9 dexa scan 09/2022: normalmamm ogram 09/2023: normalcolo noscopy 2019 dr. Ayala: normal. repeat in 10 yearspap smear: sees dr. Chang id: 2 shotsflu: every year recommende dtdap: recommende dshingles: recommende dpneumonia vaccine: not due yet Arthritis of first carpometacarpal joint of left hand 9106107306 805177 M13.842 Pain in left thumb base likely arthritis relatedUse of brace restTopica l gel Health Concerns Section Related Observation LastModified by Organization Detai ls LastModified Time None Recorded Concern Status LastModified by Organization Details LastModified Time None Recorded Advance Directives Directive None Recorded Payers Encounter Date Sequence Insurance Name Policy Number Policy Zimmerman Covered Member ID Zimmerman Member ID Guarantor Name 02/11/2024 1 [place]) 104 Loistene Katlyn [id number] Loistene Katlyn 02/25/2024 1 [place] 104 Loistene Katlyn [id number] Loistene Katlyn 08/19/2024 1 [place] 104 Loistene Katlyn [id number] Loistene Katlyn Notes Date Note Type Note Provider Name and Address Organization Details Recorded Time 02/11/2024 text/html Pt here to establish care. She's a previous patient of Dr. Parry. Does not take anytype of medications. C/O knee aches due to arthritis. No chest pain, shortness of breath, nausea or vomiting. Lives alone. Kd Huizar MD [address] [facility] [address], [place], [address], [facility] 02/11/2024 15:07:13 02/25/2024 text/html Pt here for lab review. No concerns at this time. No chest pain, shortness of breath, nausea or vomiting. Kd Huizar MD [address] [facility] [facility] [address], [place], [address], [facility] 02/25/2024 16:12:54 08/19/2024 text/html Pt here for foll ow up. C/O ache in left thumb base x 2 weeks. She types on computer daily. Denies chest pain, shortness of breath, nausea or vomiting. Discussed diet and physical activity with the patient. Discussed weight control. Discussed medications for weight control Kd Huizar MD [address] [facility] [address], [place], [address], [facility] 08/19/2024 17:22:21 OBGyn Episode No OBEpisode recorded.
--- OUTSIDE RECORDS SUMMARY | 2024-11-08 00:33 | XMS_ITS | Clinical Summary ---
Author Organization [facility] Address [address] [place] [address] Care Team Providers Care Core Maker Helper Name Role Phone Kd Arambula MD Primary Care Provider [phone] Encounters Date Type Department Care Team Description 09/15/2024 3:15 PM CDT - 09/15/2024 11:59 PM CDT Hospital Encounter [facility] [place] [address] Patience Dong MD Discharge Disposition: Home or Self Care (Routine Discharge) 09/15/2024 Travel 09/10/2024 8:04 AM SCULLION CHIEF - 09/10/2024 11:59 PM [employer]ULLION CHIEF Hospital Encounter [facility] Mammography [address] [place] [address] Kd Arambula MD Discharge Disposition: Home or Self Care (Routine Discharge) 09/10/2024 Travel from Last 3 Months Social History Tobacco Use Types Packs/Day Years Used Date Smoking Tobacco: Never Assessed Comments No Sex and Gender Information Value Date Recorded Sex Assigned at Female 09/10/2024 8:03 AM SCULLION CHIEF Legal Sex Female 4:22 PM CDT Gender Identity Not on file Sexual Orientation Not on file Plan of Treatment Health Maintenance Due Date Last Done Comments Cervical Cancer Screening Pap Smear (Age 30 to 64) Every 3 Years 1968 Colorectal Cancer Screening Colonoscopy (10 Years) 1968 Annual Physical 1971 Hepatitis C 1986 DTaP, Tdap and Td Vaccines (1 - Tdap) 1987 Hepatitis B Vaccines (1 of 3 - 19+ 3-dose series) 1987 Cervical Cancer Screening Pap with HPV Testing (Age 30 to 64) Every 5 Years 1998 Cervical Cancer Screening with HPV 1998 Pneumococcal Vaccine: 50+ Years (1 of 1 - PCV) 2018 Zoster Vaccines (1 of 2) 2018 COVID-19 Vaccine (3 - season) 2024 03/10/2021, 02/17/2021 Mammogram Screening 09/10/2026 09/10/2024, 09/10/2023, 09/07/2022, Additional history exists Meningococcal B Vaccine Aged Out No l onger eligible based on patient's age to complete this topic Meningococcal Vaccine Aged Out No anna jose eligible based on patient's age to complete this topic RSV Immunizations Under 20 Months Aged Out No longer eligible based on patient's age to complete this topic Procedures Procedure Name Priority Date/Time Associated Diagnosis Comments US PELVIC NON OB COMP TA+TV Routine 09/15/2024 3:52 PM CDT Postmenopausal bleeding MG SCREENING W WILLIS SHIRA DIGI Routine 09/10/2024 8:32 AM SCULLION CHIEF Encounter for other screening for malignant neoplasm of breast from Last 3 Months Results * US PELVIC NON OB COMP TA+TV (09/15/2024 3:52 PM CDT) Anatomical Region Laterality Modality Pelvis Ultrasound 09/25/2024 2:37 PM CDT Impressions 09/25/2024 2:44 PM CDT IMPRESSION: No significant changes in the uterus, endometrium, IUD, and cervix from the 2022 study. Overall heterogeneous uterine parenchyma, with fibroid disease. Unchanged masslike or fibroid-like lesion in the cervix. Question of low-lying IUD. Ovaries not seen due to bowel gas. I suggest a MRI female pelvis with and without contrast for further studying. Referred By: PATIENCE DONG Interpreted By: Jason Perrin MD, 09/25/2024 2:37 PM Narrative 09/25/2024 2:[address] PM [address]T [address] [address] Examination: US PELVIC NON OB COMP TA+TV Exam time: 09/15/2024 3:17 PM INDICATION: Postmenopausal vaginal bleeding TECHNIQUE: Static sonographic transabdominal and transvaginal grayscale images supplemented with color spectral Doppler imaging. COMPARISON: 06/05/2023 FINDINGS: Stable anteverted anteflexed heterogeneous uterus. Uterus measures 9.4 x 5.3 x 6.1 cm. The myometrium demonstrates mixed echogenicity with heterogeneous echotexture throughout. This would indicate fibroid disease. Potential dominant solid myometrial heterogeneous mass noted at the level of the right fundus spanning on transvaginal ultrasound approximately 4 cm. There is internal vascularity. Difficult to evaluate the endometrial lining. Technologist notes maximal AP measurement of 7 mm. Within the endometrial cavity, IUD remains present. It is difficult to characterize due to obscuration from surrounding findings, although the inferior vertical shaft may be slightly low lying projecting near internal cervical os region, best appreciated on cine clip. Cervix throughout also with a similar heterogeneous mixed echogenicity and echotexture and scattered hyperechoic foci. In the cervix, there is heterogeneous masslike tissue measuring 2 cm which is grossly similar to prior ultrasound. Both ovary not visualized on transabdominal nor transvaginal ultrasound due to bowel gas or small size. No significant cul-de-sac free fluid. Procedure Note Jason Perrin MD - 09/25/[address] [address] Examination: US PELVIC NON OB COMP TA+TV Exam time: 09/15/2024 3:17 PM INDICATION: Postmenopausal vaginal bleeding TECHNIQUE: Static sonographic transabdominal and transvaginal grayscaleimages supplemented with color spectral Doppler imaging. COMPARISON: 06/05/2023 FINDINGS: Stable anteverted anteflexed heterogeneous uterus. Uterus measures 9.4 x5.3 x 6.1 cm. The myometrium demonstrates mixed echogenicity with heterogeneousechotexture throughout. This would indicate fibroid disease. Potentialdominant solid myometrial heterogeneous mass noted at the level of theright fundus spanning on transvaginal ultrasound approximately 4 cm. Thereis internal vascularity. Difficult to evaluate the endometrial lining. Technologist notes maximalAP measurement of 7 mm. Within the endometrial cavity, IUD remainspresent. It is difficult to characterize due to obscuration fromsurrounding findings, although the inferior vertical shaft may be slightlylow lying projecting near internal cervical os region, best appreciated oncine clip. Cervix throughout also with a similar heterogeneous mixed echogenicity andechotexture and scattered hyperechoic foci. In the cervix, there isheterogeneous masslike tissue measuring 2 cm which is grossly similar toprior ultrasound. Both ovary not visualized on transabdominal nor transvaginal ultrasounddue to bowel gas or small size. No significant cul-de-sac free fluid. IMPRESSION: No significant changes in the uterus, endometrium, IUD, and cervix fromthe 2022 study. Overall heterogeneous uterine parenchyma, with fibroid disease. Unchanged masslike or fibroid-like lesion in the cervix. Question of low-lying IUD. Ovaries not seen due to bowel gas. I suggest a MRI female pelvis with and without contrast for furtherstudying. Referred By: PATIENCE DONG Interpreted By: Jason Perrin MD, 09/25/2024 2:37 PM us Patience Dong MD ULTRASOUND Final Res ult * MG SCREENING W WILLIS SHIRA DIGI (09/10/2024 8:32 AM SCULLION CHIEF) Anatomical Region Laterality Modality Breast Bilateral Mammography 09/10/2024 9:53 AM SCULLION CHIEF Impressions 09/10/2024 9:57 AM SCULLION CHIEF IMPRESSION: No suspicious mammographic findings. Recommendation: 1. Routine Screening, Bilateral Assessment: ACR BI-RADS 1 - NEGATIVE Ordered By: KD ARAMBULA Interpreted By: Terence Mccloud MD, 09/10/2024 9:53 AM Narrative 09/10/2024 9:57 AM SCULLION CHIEF [facility] [address] [facility] [place], [place] [id number] Examination: Screening bilateral mammogram Exam Date: 09/10/2024 8:10 AM Clinical history: Routine screening. Comparison: 09/10/2023, 09/07/2022 Technique: Digital screening mammography of both breasts was performed. Breast tomosynthesis acquisitions were obtained and reviewed. This study was read with the assistance of a computer-aided detection system. Tissue density: There are scattered areas of fibroglandular density. Findings: No suspicious masses, malignant appearing calcifications, skin thickening or other abnormalities are present. No significant change from the prior exam. Kd Arambula MD MAMMO Final Resul t from Last 3 Months Insurance [facility] Care Teams Core Maker Helper Relationship Specialty Start Date End Date Kd Arambula MD [address] [facility] [address] [place] [address] [facility] - General 09/10/24
[2024-11-08 06:11] VITALS: BMI 45.8
[2024-11-08 06:35] VITALS: BP 130/81; PULSE 78; RESP 16; TEMP 36.5; O2SAT 98
[2024-11-08] MEDS: LACTATED RINGERS 1,000 ML 30 ML IV CONT (06:35)
[2024-11-08] MEDS: ACETAMINOPHEN 500 MG TABLET 1000 MG PO (06:40)
--- NOTE | 2024-11-08 06:45 | P.PNAN_ITS ---
Anes - Initial Pre Proc Eval Procedure: Operation Date: 11/08/24 07:30 Proposed Procedures p Hysteroscopy Dilation and Curettage - Patience Dong MD Date/Time: 11/08/24 06:45 Surgeon: Patience Dong MD Pre Op Diagnosis: thickened endometrial lining Patient Data Age: 54 Gender: F Height: 1.65 m Weight: 122.7 kg Allergies Allergy/AdvReac Type Severity Reaction Status Date / Time No Known Allergies Allergy Verified 10/28/24 13:20 Home Medications ?Medication ?Instructions ?Recorded ?Confirmed ?Type Adults Multivitamin 1 tab-cap PO DAILY 07/02/23 10/28/24 History Patient hx anesthesia problems: none Family hx anesthesia problems: none Results Review: All pre-operative results and documents have been reviewed as part of the pre- operative evaluation. [facility] Past Medical History Medical History Arthritis Chronic hypertension (normal spontaneous vaginal delivery) Social History Social History Smoking status: Never smoker Alcohol use details: every blue kumar Substance use: never Substance use type: does not use Living arrangements: alone Anes - Eval Final PreProcedure Day of Procedure 11/08/24 06:45 Patient weight: morbidly obese Heart: regular rate and rhythm Lungs: clear to auscultation Airway: Mallampati scale class II Neurological: alert and oriented Last oral intake: >/= 8 hours ASA classification: III Emergent: no Anesthetic plan: proceed Anesthesia type and monitoring: general GIVS and standard monitoring Results Review: All pre-operative results and documents have been reviewed as part of the pre- operative evaluation. Informed Consent: The patient's anesthetic plan and its attendant risks and benefits were discussed with the patient/family/POA. Questions were solicited and answers provided to the satisfaction of the patient/family/POA.
--- NOTE | 2024-11-08 07:18 | WPDHPUPDATE1 ---
History and Physical Update Update Date/Time: 11/08/24 07:18 History and Physical has been reviewed, including an updated exam of the patient. There are NO changes in the patient's condition. Risks, benefits, and alternatives have been discussed and questions answered. Patient agrees to proceed with procedure.
--- NOTE | 2024-11-08 07:18 | PM.HPGS ---
History of Present Illness History of Present Illness Consent: Risks, benefits, and alternatives have been discussed and questions answered. Patient agrees to proceed with procedure. Chief complaint: thickened endometrial lining Narrative: Andres Potts is a 54 year old female With spotting. Pelvic ultrasound was performed and reveals a thickened lining at 7mm. It was recommended to proceed with D&C hysteroscopy. Risks of infection, bleeding, perforation, and possible pathology are discussed. Patient voices understanding and agrees to proceed. Review of Systems Review of Systems: not repeated day of surgery; patient states no changes in status [facility] Past Medical History Medical History (normal spontaneous vaginal delivery) Arthritis Chronic hypertension Surgical History Surgical History (Updated 11/08/24 @ 07:20 by Patience Dong MD) History of hysteroscopy July 2023 chronic endometritis Social History Social History Smoking status: Never smoker Alcohol use details: every blue kumar Substance use: never Substance use type: does not use Living arrangements: alone Meds Home Medications and Allergies Home Medications ?Medication ?Instructions ?Recorded ?Confirmed ?Type Adults Multivitamin 1 tab-cap PO DAILY 07/02/23 11/08/24 History Allergies Allergy/AdvReac Type Severity Reaction Status Date / Time No Known Allergies Allergy Verified 11/08/24 07:11 Exam Const: General: healthy appearing and alert Orientation/consciousness: patient oriented x3 Resp: Effort & Inspection: normal respiratory effort GI: GI Palp: Yes Soft to palpation, No Tenderness to palpation present (GI) and No Palpable mass present : External Female Exam: normal external appearance Speculum Exam - Vagina: normal appearance of the vagina and normal vaginal discharge Speculum Exam - Cervix: normal appearance of the cervix and Other cervical findings present ( IUD strings present) Bimanual exam- vagina & uterus: uterine size normal and consistency normal Bimanual Exam- Adnexa, other: normal adnexae and No adnexal tenderness Neuro: General: patient oriented x3 Assessment and Plan Assessment and plan (1) Post-menopausal bleeding: Code(s): N95.0 - Postmenopausal bleeding Status: Acute Assessment and Plan: The patient with chronic endometritis found July 2023 she was given doxycycline for 10 days which resolved the spotting. Patient had an increase in spotting in April of 2024 and was again given doxycycline which initially resolved the spotting but she began bleeding again in late August. Pelvic ultrasound was performed and revealed a thickened endometrium at 7mm. Was recommended to proceed with D&C hysteroscopy which the patient now presents for.
--- NOTE | 2024-11-08 07:49 | W.PM.PROC2 ---
Procedure Note - Detailed Date of Procedure 11/08/24 Pre-op Diagnosis thickened endometrial lining Postmenopausal bleeding Post-op Diagnosis Same Procedure Performed D&C hysteroscopy Surgeon Patience Dong MD Anesthesia MAC Findings Uterus sounds to 8cm. IUD strings visible and IUD in proper location visually. Endometrium appears grossly normal. Description of Procedure The patient was taken to the operating room and placed under anesthesia in the dorsal lithotomy position. She was prepped and draped in the usual sterile fashion. Stollings speculum was placed in the vagina and the cervix grasped anterior lip with a tenaculum. The uterus is sounded to 8cm. The diagnostic hysteroscope was placed with the above-stated findings. The hysteroscope was then removed. The sharp curette is used to curette the endometrium until a good uterine cry was noted in all areas. Minimal material was obtained consistent with the atrophic appearance. All instruments were removed. Sponge, needle, and instrument counts are correct per the OR staff. The patient was taken to recovery in stable condition. Estimated Blood Loss 5 Drains No Packing No Pathology Yes (Endometrial curettings) Complications No immediate complications Condition Stable Disposition PACU
[2024-11-08 07:50] VITALS: BP 155/89; PULSE 77; RESP 18; O2SAT 100
[2024-11-08 08:15] VITALS: BP 167/87; PULSE 77; RESP 20
[2024-11-08 08:40] VITALS: BP 156/73; PULSE 81; RESP 18
== END 2024-11-08 08:54 | disposition home or self-care (01) ==
PROVIDERS: PCP Internal Medicine; Visit Provider Obstetrics & Gynecology Gynecology
PROC: 0U5B8ZZ Destruction of Endometrium, Via Natural or Artificial Opening Endoscopic (ICD-10-PCS; CPT 58563; principal; 2024-11-08 07:30)
DX: R93.89 Abnormal findings on diagnostic imaging of other specified body structures (principal); N85.8 Other specified noninflammatory disorders of uterus; I10 Essential (primary) hypertension; M19.90 Unspecified osteoarthritis, unspecified site; E66.01 Morbid (severe) obesity due to excess calories; Z68.42 Body mass index [BMI] 45.0-49.9, adult
CPT/HCPCS: 58558; 88305; A9270; J2250; J2704; J7120